=== PATIENT | male | born 1955 | race Hispanic/Latino ===

== ENCOUNTER 2023-01-31 06:49 | Day surgery (SDC) | payer MEDICARE ==
[2023-01-29 12:28] VITALS: BP 150/86
[2023-01-29 12:38] LABS: BASOPHILS % (AUTO) 0.3 % (0.0-5.0); HEMATOCRIT 44.7 % (42-54); LYMPHOCYTES % (AUTO) 9.3 % (21.0-51.0); MEAN CORPUSCULAR HEMOGLOBIN 28.9 pg (27.0-33.0); MEAN CORPUSCULAR HGB CONC 32.4 g/dL (32.0-36.0); MONOCYTES % (AUTO) 6.2 % (3.0-13.0); NEUTROPHILS % (AUTO) 82.6 % (40.0-77.0); PLATELET COUNT (AUTO) 217 K/uL (130-400); RED BLOOD CELL COUNT(AUTO) 5.02 MIL/uL (4.50-6.20); RED CELL DISTRIBUTION WIDTH 13.2 % (11.0-15.5)
[2023-01-29 12:55] LABS: CREATININE 1.1 mg/dL (0.5-1.5); POTASSIUM 4.3 mmol/L (3.5-5.1)
[2023-01-31] VITALS (17 sets, daily range): BP systolic 114–158; BP diastolic 68–99
[~2023-01-31] VITALS: Ht 179.1 cm; Wt 112.7 kg
[~2023-01-31 06:49] MED LIST: ALBU0.63 IH; DUTA0.5C37 PO; FLUT16H NASAL; FLUT1BLS3 IH; GABA300S3 PO; IBUP-2070 PO; TAMS-1 PO
[2023-01-31] MEDS ORDERED: LEVOFLOXACIN 500 MG/D5W 100 ML 100 ML ONE (07:03)
[2023-01-31] MEDS ORDERED: LACTATED RINGERS 1000ML 1,000 ML IV ONE (07:03)
[2023-01-31] MEDS ORDERED: ALBUTEROL INHALER 90MCG/INH IH ONE (08:37)
[2023-01-31] MEDS ORDERED: FAMOTIDINE 20MG VIAL IV ONE (08:41)
[2023-01-31] MEDS ORDERED: SUCCINYLCHOLINE 200MG/10ML SYR ONE (08:44)
[2023-01-31] MEDS ORDERED: LIDOCAINE PF 100MG/5ML (2%) SYRINGE 5ML ONE (08:44)
[2023-01-31] MEDS ORDERED: PROPOFOL 10 MG/ML 20ML VIAL IV ONE (08:45)
[2023-01-31] MEDS ORDERED: ROCURONIUM 10MG/1ML SYR 10 MG/ML ML ONE (08:45)
[2023-01-31] MEDS ORDERED: FENTANYL CITRATE PF 50 MCG/1 ML 2ML VIAL ONE ×2 (08:45→10:04)
[2023-01-31] MEDS ORDERED: GLYCOPYRROLATE 1 MG/5 ML SYRINGE ONE (08:45)
[2023-01-31] MEDS ORDERED: ONDANSETRON 4MG INJ ONE (09:02)
[2023-01-31] MEDS ORDERED: GENTAMICIN SULFATE 80 MG/2 ML VIAL ONE (09:27)
[2023-01-31] MEDS ORDERED: NEOSTIGMINE 5MG/5ML SYR IV ONE (09:54)
[2023-01-31] MEDS ORDERED: IPRATROPIUM/ALBUTEROL SULFATE 3 ML SOLUTION IH ONE ×2 (10:14→10:30)
[2023-01-31] MEDS ORDERED: BACITRACIN 28.4 GM OINT TP ONE (10:19)
[2023-01-31] MEDS ORDERED: BUPIVACAINE/PF 0.25% 30ML VIAL IJ ONE (10:19)
== END 2023-01-31 12:30 | disposition home or self-care (01) ==
LOC: DAH 06:49
PROVIDERS: ATTEND Urology
DX: N40.1 Benign prostatic hyperplasia with lower urinary tract symptoms (principal); Z20.822 Contact with and (suspected) exposure to COVID-19; R33.8 Other retention of urine; R39.12 Poor urinary stream; R35.1 Nocturia; N41.1 Chronic prostatitis; R39.15 Urgency of urination; R35.0 Frequency of micturition; R39.14 Feeling of incomplete bladder emptying; N30.20 Other chronic cystitis without hematuria; J45.909 Unspecified asthma, uncomplicated; G47.33 Obstructive sleep apnea (adult) (pediatric); Z98.890 Other specified postprocedural states; Z79.899 Other long term (current) drug therapy
CPT/HCPCS: 80048; 85025; 87426; 36415; 93005; 52648; 94640; A4663; J7120 ×2; A4354; A4340; J3490 ×3; J3010 ×2; J0330; J2710; J1956; J2001; J1580; J2704; J2405; A4358; A4215; A4223; A4222; A4221; A4510; A4600